=== PATIENT | female | born 1995 | race Caucasian/White ===

== ENCOUNTER 2024-08-21 16:17 | Observation (INO) | payer BC, SELFPAY ==
[2024-08-21] VITALS (13 sets, daily range): BP systolic 108–155; BP diastolic 57–100; BMI 48.7
--- NOTE | 2024-08-21 07:13 | ED.GENMED ---
History of Present Illness
<Bharat Elliott PA-C - Last Filed: 08/21/24 15:20>
General
Chief Complaint: Flank Pain
Source: patient
Exam Limitations: none
Time Seen by Provider: 08/21/24 07:12
History of Present Illness
History of Present Illness:
28-year-old female presents with onset of right flank pain 2 evenings ago. The pain is sharp stabbing in nature and intermittent. Occasionally radiates to the front. She is nauseous without vomiting. Last menstrual cycle was 2 to 3 weeks ago.
No prior history of kidney stones. No fever. Pain does not radiate down the leg. No other complaints at this time
Phy Exam
<Bharat Elliott PA-C - Last Filed: 08/21/24 15:20>
Physical Exam
Physical Exam:
General: Uncomfortable appearing female no acute respiratory distress HEENT: Normocephalic atraumatic
Heart: Regular rate and rhythm no murmurs
Lungs: Clear no wheeze
Musculoskeletal exam: Right costovertebral angle tenderness
Abdomen is soft nontender nondistended
Course
<Bharat Elliott PA-C - Last Filed: 08/21/24 15:20>
Orders/Labs/Results
Orders:
Orders
08/21/24 07:27
0.9% Sodium Chloride 1000 ml [Nss] 1,000 ml IV BOLUS
HYDROmorphone [Dilaudid] 0.5 mg IV NOW STA
Ketorolac [Toradol] 15 mg IV NOW STA
Ondansetron Injectable [Zofran] 4 mg IV NOW STA
08/21/24 07:28
CT Abd/pel Without Iv Or Oral Urgent
Comment:
Reason For Exam: right flank pain
08/21/24 07:29
Test Result ONCE
08/21/24 07:44
Complete Blood Count/With Diff Urgent
Comprehensive Metabolic Panel Urgent
HCG, Serum Qualitative Screen Urgent
Lipase Urgent
Comment: ADD ON
08/21/24 10:48
US Abdomen Limited Urgent
Comment:
Reason For Exam: RUQ pain
08/21/24 11:21
D-Dimer Urgent
Urinalysis Reflex To Culture Urgent
Date Specimen was Collected: 08/21/24
Time Specimen was Collected: 07:41
08/21/24 12:00
Add On- LAB Urgent
Tests Added?: lipase
08/21/24 12:16
CT Pe/abd/pel W Urgent
Comment: MODIFIED TO SCAN C-A-P TOGETHER
Reason For Exam: right flank pain
08/21/24 15:09
Piperacillin/Tazo 3.375 Gram [Zosyn] 3.375 gram in 50 ml IV NOW
Abnormal Lab Results
08/21/24 08/21/24
07:44 11:21
WBC 11.9 H 10^3/uL
(4.8-10.8)
MPV 11.7 H fL
(7.4-10.4)
Abs Immat Gran (auto) 0.1 H 10^3/uL
(0-0.05)
Absolute Neuts (auto) 8.1 H 10^3/uL
(1.4-6.5)
Absolute Monos (auto) 0.7 H 10^3/uL
(0.1-0.6)
D-Dimer 0.64 H ug/mlFEU
(0.00-0.50)
Glucose 107 H mg/dl
(70-99)
ALT 47 H U/L
(0-35)
08/21/24 07:44
08/21/24 07:44
Vital Signs
Initial and Last Documented VS:
Initial Vital Signs
Temp Pulse Resp BP Pulse Ox
97.9 F 93 18 137/100 96
08/21/24 06:52 08/21/24 06:52 08/21/24 06:52 08/21/24 06:52 08/21/24 06:52
Last Documented Vital Signs
Temp Pulse Resp BP Pulse Ox
98.5 F 77 23 132/76 97
08/21/24 13:30 08/21/24 14:59 08/21/24 14:59 08/21/24 14:59 08/21/24 14:59
<Shine Chris MD - Last Filed: 08/21/24 11:50>
Orders/Labs/Results
Orders:
Orders
08/21/24 07:27
0.9% Sodium Chloride 1000 ml [Nss] 1,000 ml IV BOLUS
HYDROmorphone [Dilaudid] 0.5 mg IV NOW STA
Ketorolac [Toradol] 15 mg IV NOW STA
Ondansetron Injectable [Zofran] 4 mg IV NOW STA
08/21/24 07:28
CT Abd/pel Without Iv Or Oral Urgent
Comment:
Reason For Exam: right flank pain
08/21/24 07:29
Test Result ONCE
08/21/24 07:44
Complete Blood Count/With Diff Urgent
Comprehensive Metabolic Panel Urgent
HCG, Serum Qualitative Screen Urgent
Lipase Urgent
Comment: ADD ON
08/21/24 10:48
US Abdomen Limited Urgent
Comment:
Reason For Exam: RUQ pain
08/21/24 11:21
D-Dimer Urgent
Urinalysis Reflex To Culture Urgent
Date Specimen was Collected: 08/21/24
Time Specimen was Collected: 07:41
08/21/24 12:00
Add On- LAB Urgent
Tests Added?: lipase
08/21/24 12:16
CT Pe/abd/pel W Urgent
Comment: MODIFIED TO SCAN C-A-P TOGETHER
Reason For Exam: right flank pain
08/21/24 15:09
Piperacillin/Tazo 3.375 Gram [Zosyn] 3.375 gram in 50 ml IV NOW
Abnormal Lab Results
08/21/24 08/21/24
07:44 11:21
WBC 11.9 H 10^3/uL
(4.8-10.8)
MPV 11.7 H fL
(7.4-10.4)
Abs Immat Gran (auto) 0.1 H 10^3/uL
(0-0.05)
Absolute Neuts (auto) 8.1 H 10^3/uL
(1.4-6.5)
Absolute Monos (auto) 0.7 H 10^3/uL
(0.1-0.6)
D-Dimer 0.64 H ug/mlFEU
(0.00-0.50)
Glucose 107 H mg/dl
(70-99)
ALT 47 H U/L
(0-35)
08/21/24 07:44
08/21/24 07:44
Vital Signs
Initial and Last Documented VS:
Initial Vital Signs
Temp Pulse Resp BP Pulse Ox
97.9 F 93 18 137/100 96
08/21/24 06:52 08/21/24 06:52 08/21/24 06:52 08/21/24 06:52 08/21/24 06:52
Last Documented Vital Signs
Temp Pulse Resp BP Pulse Ox
98.5 F 77 23 132/76 97
08/21/24 13:30 08/21/24 14:59 08/21/24 14:59 08/21/24 14:59 08/21/24 14:59
<Bharat Elliott PA-C - Last Filed: 08/21/24 15:20>
MDM/Problems Addressed
Differential Diagnosis Includes:
Right flank pain. Consider renal colic versus pyelonephritis versus ectopic versus musculoskeletal flank pain
Check urine test urinalysis labs. CT pending medicine ordered for pain
<Bharat Elliott PA-C - Last Filed: 08/21/24 15:20>
*Critical Care Note
Total Time (30-74mins, 75-104mins- exclusive of procedures): Not Applicable
<Bharat Elliott PA-C - Last Filed: 08/21/24 15:20>
Update Note
Update Note:
Discussed with emergency room attending. Initial CT scan showed exophytic lesion in the right renal pelvis not clearly identifiable on plain CT. No renal stone noted. This prompted further testing including D-dimer which was slightly elevated.
CT of chest PE study as well as IV contrast CT of the abdomen pelvis was ordered. There is no PE. There is what is read as a loculated fluid collection to suggest an abscess within the right kidney. White blood cell count is 11.9. Ordered Zosyn.
Will admit to hospital for further evaluation possible interventional radiology involvement
ED Attending Note
<Bharat Elliott PA-C - Last Filed: 08/21/24 15:20>
-
Portions of this chart may have been created with voice recognition software.� Occasional wrong word or��sound alike� substitutions may have occurred due to the inherent limitations of voice recognition software.
<Shine Chris MD - Last Filed: 08/21/24 11:50>
ED Attending Note
Patient seen and examined by attending physician: Yes
I performed the substantive portion of visit, reviewed & personally made and approve the management plan that is documented in note by myself or LION.: Yes
ED Attending Note:
28-year-old female complaining of nontraumatic right back pain. No dysuria or frequency no fever. Some radiation to the front of the abdomen.
Could not get comfortable with this discomfort overnight.
On exam patient is nontoxic in no distress. Sitting up. No CVA tenderness. No rash. No respiratory distress. Lungs are clear and equal. Abdomen is soft and nontender. No right upper quadrant tenderness. No rebound or guarding no mass or
hernia
Differential would include kidney stone, other kidney issue. Gallbladder, PE. Doubt PE but pain is worse with breathing. Will check D-dimer. Doubt gallbladder. No real right upper quadrant tenderness but does come from the back. Will check
ultrasound. CT shows no obstructing kidney stone however there is a exophytic lesion of the kidney. Not convinced this is causing her pain. Will do a D-dimer to screen for PE, limited gallbladder ultrasound and CT with IV contrast.
Discharge Plan
Departure
Patient Disposition: Admit
Date of Disposition: 08/21/24
Time of Disposition: 15:20
Presentation/result/management discussed w/ accepting MD/DO: Hospitalist
Patient with high blood pressure during this ER visit?: No
Discharge Problem:
Renal abscess
Prescriptions:
No Action
No Current Medications
0
Referrals:
Beata Holliday DO [Family Provider, Family Practice]
Interventions
Interventions:
*Risk Screen - Suicide Last Done: 08/21/24 06:52
*General Assessment Last Done: 08/21/24 07:50
*Neglect/Abuse Screening Last Done: 08/21/24 07:50
*ED- Fall Risk Assessment Last Done: 08/21/24 07:50
*ED COVID-19 Vaccine History Last Done: 08/21/24 06:52
DD-Dajhqd-Sogxykbdxz Assessment Last Done: 08/21/24 07:50
ED-Female Genitourinary Assessment Last Done: 08/21/24 07:50
Discharge Date and Time
Print Language: SWISS
[2024-08-21] MEDS: ZOFRAN 4 MG IV (07:41)
[2024-08-21] MEDS: TORADOL 15 MG IV ×2 (07:41→17:11)
[2024-08-21] MEDS: DILAUDID 0.5 MG IV (07:42)
[2024-08-21] MEDS: NSS 1000 IV (07:42)
[2024-08-21 07:58] LABS: % Basophils 0.6 % (0-2); % Eosinophils 1.7 % (0-6); % Immature Granulocytes 0.4 % (0-0.5); % Lymphocytes 23.3 % (20.5-51.1); Absolute Basophils 0.1 10^3/uL (0-0.2); Absolute Eosinophils 0.2 10^3/uL (0-0.7); Absolute Immature Granulocytes 0.1 10^3/uL (0-0.05); Absolute Lymphocytes 2.8 10^3/uL (1.2-3.4); Absolute Monocytes 0.7 10^3/uL (0.1-0.6); Absolute Neutrophils 8.1 10^3/uL (1.4-6.5); Hemoglobin 13.5 g/dL (12.0-16.0); Mean Corp Hgb Conc. 33.8 g/dL (33.0-37.0); Mean Corpuscular Hgb 29.3 pg (27.0-31.0); Mean Corpuscular Volume 86.8 fL (81.0-99.0); Mean Platelet Volume 11.7 fL (7.4-10.4); Nucleated Red Blood Cells % 0 %; Platelet Count 281 10^3/uL (130-400); Red Blood Cell Count 4.61 10^6/uL (4.20-5.40); Red Cell Dist. Width 12.1 % (11.5-14.5); White Blood Cell Count 11.9 10^3/uL (4.8-10.8)
[2024-08-21 08:29] LABS: ALT (SGPT) 47 U/L (0-35); AST (SGOT) 33 U/L (14-36); Albumin 4.5 g/dl (3.5-5.0); Alkaline Phosphatase 88 U/L (38-126); Blood Urea Nitrogen 10 mg/dl (7-17); Calcium 9.6 mg/dl (8.4-10.2); Carbon Dioxide 24 mmol/L (22-30); Chloride 106 mmol/L (98-107); Estimated Creatinine Clearance > 125 ml/min; Glucose 107 mg/dl (70-99); Potassium 4.7 mmol/L (3.5-5.1); Sodium 139 mmol/L (135-145); Total Bilirubin 0.6 mg/dl (0.2-1.3); eGFR > 60.00
[2024-08-21 08:38] LABS: HCG, Serum Qualitative Screen Negative
[2024-08-21 11:34] LABS: Urine Albumin Negative (Neg - Trace); Urine Bilirubin Negative (Negative); Urine Character Clear (Clear); Urine Color Yellow; Urine Glucose Negative (Negative); Urine Ketone Negative (Negative); Urine Leukocyte Negative (Negative); Urine Nitrite Negative (Negative); Urine Occult Blood Negative (Negative); Urine Urobilinogen Negative (Neg - 1+)
[2024-08-21 11:46] LABS: D-Dimer 0.64 ug/mlFEU (0.00-0.50)
[2024-08-21 13:39] LABS: Lipase 68 U/L (23-300)
[2024-08-21] MEDS: ZOSYN 50 IV (15:24)
--- NOTE | 2024-08-21 15:33 | HPS.HSE ---
Family Physician
-
Family Physician: Beata Holliday
Chief Complaint
-
right flank pain
History of Present Illness
Patient is a 28-year-old female with no significant past medical history who presented to [facility] ED for evaluation of right flank pain. Patient reports that Saturday into she started with right back and right flank pain, stated she felt like
she had slept in an odd position. Yesterday she was able to tolerate pain with heating pad and acetaminophen. That night she reports being woken from sleep with sharp pain that now radiated to front abdomen as well and wasn't getting relief so she
came to ED for evaluation. Patient denies any fever, chills, cough, shortness of breath, chest pain, nausesa, vomiting, constipation, diarrhea or urinary symptoms.
Medical History
Past Medical History
Past Medical History: Reports None
Past Surgical History: Reports None
Social History
Tobacco: Vaping (for approximately a year )
Alcohol: Occasional
Drug: None
Personal:
Living: With Family
Employment: Employed
Family History
Family History: Other (Father: DM and prostate cancer; Mother: fibromyalgia )
Allergies / Home Medications
Allergies reflects when Allergies were last updated in [facility].
Home Medications with original date entered in [facility]
Allergy/Medication List:
Allergies
Allergy/AdvReac Type Severity Reaction Status Date / Time
environmental Allergy nasal Uncoded 08/21/24 06:58
congestion
Home Medications
No Meds [No Current Medications] 08/21/24
Review of Systems
-
History Source: Patient
Abdomen/GI: Reports Abdominal Pain (right back and right flank pain that radiates to abdomen )
Physical Exam
Vital Signs
Vital Signs
Temp Pulse Resp BP Pulse Ox
98.5 F 77 23 132/76 97
08/21/24 13:30 08/21/24 14:59 08/21/24 14:59 08/21/24 14:59 08/21/24 14:59
Physical Exam
General: Well Developed, Well Nourished, No Apparent Distress, Conversant and Morbidly Obese
HEENT: NormoCephalic, Moist mucous membranes and Atraumatic
Respiratory: Clear
Cardiac: S1/S2 and Regular Rhythm
Breast: Deferred by me
GI: Soft, Non Distended, Normal Bowel Sounds and Tender
Rectal: Deferred by Provider
Genito-urinary: Deferred by me
Musculoskeletal: No Clubbing, No Cyanosis, No Edema and Other (right back and right flank pain that radiates to abdomen )
Skin: Warm, Dry and IV/Catheter Site
Neuro: Awake, Alert, AO x 3 and Nonfocal/grossly intact
Psych: Calm and Intact Judgment/Insight
Laboratory Results
-
08/21/24 07:44
08/21/24 07:44
Laboratory Results
Total Bilirubin 0.6 mg/dl (0.2-1.3) 08/21/24 07:44
AST 33 U/L (14-36) 08/21/24 07:44
ALT 47 U/L (0-35) H 08/21/24 07:44
Alkaline Phosphatase 88 U/L (38-126) 08/21/24 07:44
Lipase 68 U/L (23-300) 08/21/24 07:44
Data Reviewed
-
CT Scan: Report Reviewed by me (2 Abd/Pel (see reports) )
Ultrasound: Report Reviewed by me (RUQ Abd: Negative for cholelithiasis. Hepatic steatosis. Exophytic solid and cystic mass arising from the anterior right kidney measuring 3.1 x 2.9 x 3.2 cm.)
Lab Data: Labs Reviewed by me (WBC 11.9, )
Impression/Plan
-
IMPRESSION/PLAN:
#
Abd US: Negative for cholelithiasis.
Hepatic steatosis.
Exophytic solid and cystic mass arising from the anterior right kidney measuring 3.1 x 2.9 x 3.2 cm.
Abd/Pel w/out IV contrast: 1. Partially exophytic lesion arising from the anterior midpole of the right kidney measuring 2.6 cm, suspicious for small renal neoplasm versus complex cyst. Further evaluation
with ultrasound versus nonemergent multiphasic CT or MRI is recommended.
2. Nonspecific heterogeneity of the lateral midpole of the right kidney with some associated hyperdensity, also possibly a complex cyst. No inflammatory changes identified. No
right-sided hydronephrosis or intrarenal calculi.
3. Unremarkable appendix.
4. Hepatic steatosis.
Abd/Pel w/ IV contrast: 1. Multiloculated fluid collection seen within the RIGHT kidney which corresponds to the abnormality seen on prior CT. No definitive enhancement appreciated. The largest locule
within the lateral right midpole measures 2.1 x 2.7 cm. No inflammatory changes appreciated. However, findings suspicious for renal abscess.
2. Limited evaluation for pulmonary embolism with no central emboli identified.
3. Hepatic steatosis.
4. Additional findings above.
- Admit to
- Consult ID
- Consult Urology
- IV Zosyn
- supportive care
Code status: full code
DVT prophylaxis: Lovenox sq
--- NOTE | 2024-08-21 16:11 | W.PN.UPDATE ---
Update Note
Progress Note Update
This is an addendum to H&P written by Jocelyn Calvillo on 08/21/2024.� Patient seen and examined independently with [employer].
28-year-old female without past medical history presenting with intermittent stabbing right flank pain 2 nights ago.� Nausea without vomiting.� No fever or history of kidney stones.
Vital signs normal.
Labs show leukocytosis.
Urinalysis unremarkable.� CT abdomen pelvis shows multiloculated fluid collection within the right kidney suspicious for renal abscess.
Zosyn started.� Urology and ID consulted.
--- NOTE | 2024-08-21 17:02 | CON.ID ---
Consultation
-
Date/Time Consultation Requested: August 21, 2024 1654
Date/Time Consultation Performed: August 21, 2024 1700
Requesting Provider: YAEL Thomas
Performing Provider: Dr. Yajaira Cunningham
Reason for Consultation: Renal abscess
Chief Complaint / Past History
Chief Complaint
Right flank pain
History of Present Illness
28-year-old female without significant past medical history who presented to the ER this morning due to right flank pain. She reports on Saturday in the middle of the night, she got up to go to the bathroom when she noted stabbing pain on the
right side of her back. Pain persisted through . The stabbing sharp pain then started shooting to the front. She therefore came to the ER. No dysuria, urgency, or frequency. No history of pyelonephritis. She had UTI when she was a
child. No fevers or chills. In ED white count 11.9. Urine analysis negative nitrite, negative leuk esterase, negative white blood cells. CT of the chest abdomen pelvis with IV contrast shows right kidney with multiloculated low attenuation
collection without enhancement. No inflammatory stranding. She is started on Zosyn.
Past History
Additional Past Medical History:
Class III obesity BMI 49
Past Surgical History: None
Allergy History:
environmental Allergy (Uncoded 08/21/24 06:58)
nasal congestion
Medications Reviewed: Yes
Current Antibiotics:
Zosyn
Social History
Tobacco: Vaping
Alcohol: Occasional
Drug: None
Personal:
Family History
Family History: Not Pertinent
Review of Systems
Review of Systems
General: Negative Fever, Chills or Change in Appetite
HEENT: Negative Stiff Neck, Sinus Problems or Headache
Cardiovascular: Negative Chest Pain or Dyspnea
Respiratory: Negative Dyspnea or Cough
Gasteroenterology: Negative Nausea, Vomiting or Diarrhea
Genital / Urological: Negative Dysuria
Endocrine: Negative Weakness
Skin / Hair / Nails: Negative Rash
Neurological: Negative Dizziness
All systems: All other systems were reviewed and were negative
Vital Signs
Temp Pulse Resp BP Pulse Ox
98.5 F 87 22 154/89 97
08/21/24 13:30 08/21/24 16:30 08/21/24 16:30 08/21/24 16:00 08/21/24 16:45
Physical Exam
Physical Exam
Constitutional: No Acute Distress and Obese
Eyes: No Conjunctival Hemorrhage and Sclera Anicteric
Cardiovascular: Regular Rate and S1/S2
Pulmonary: Clear
Gastrointestinal: Soft, Non Tender, Non Distended and Normal Bowel Sounds
Genito-Urinary: Negative Suprapubic Tenderness or CVA Tenderness
Extremities: Negative Edema
Neurological: AO x 3
Lab / Diagnostic Study Results
08/21/24 07:44
08/21/24 07:44
Abs Immat Gran (auto) 0.1 10^3/uL (0-0.05) H 08/21/24 07:44
Absolute Neuts (auto) 8.1 10^3/uL (1.4-6.5) H 08/21/24 07:44
Absolute Lymphs (auto) 2.8 10^3/uL (1.2-3.4) 08/21/24 07:44
Absolute Monos (auto) 0.7 10^3/uL (0.1-0.6) H 08/21/24 07:44
Absolute Basos (auto) 0.1 10^3/uL (0-0.2) 08/21/24 07:44
Immature Gran % 0.4 % (0-0.5) 08/21/24 07:44
Neutrophils % 68.0 % (42.2-75.2) 08/21/24 07:44
Lymphocytes % 23.3 % (20.5-51.1) 08/21/24 07:44
Monocytes % 6.0 % (1.7-9.3) 08/21/24 07:44
Eosinophils % 1.7 % (0-6) 08/21/24 07:44
Basophils % 0.6 % (0-2) 08/21/24 07:44
Microbiology Results
08/21/34 Ab US: Negative for cholelithiasis. Hepatic steatosis. Exophytic solid and cystic mass arising from the anterior right kidney measuring 3.1 x 2.9 x 3.2 cm.
08/21/24 CT PE/abd/pel : Multiloculated fluid collection seen within the RIGHT kidney which corresponds to the abnormality seen on prior CT. No definitive enhancement appreciated. The largest locule within the lateral right midpole measures 2.1 x 2.7
cm. No inflammatory changes appreciated. However, findings suspicious for renal abscess.
Assessment / Plan
# Right flank spasm/shooting pain
- CT a/p non-enhancing multi-loculated collection right kidney, no perinephric stranding.
- She DOES NOT clinically correlate with renal abscess: No fever, normal wbc, UA NEGATIVE, NO CVA tenderness.
- Order placed for IR to aspirate fluid for culture and cytology.
- DC Zosyn and observe.
[2024-08-21] MEDS: FLUSH (NSS) 2 FLUSH IV ×2 (17:11→17:12)
--- NOTE | 2024-08-21 19:04 | CONS.URO ---
Consultation
-
Date/Time Consultation Performed: 08/21/24 7pm
Performing Provider: Peffer
Reason for Consultation: Renal fluid collection
Medical History
History of Present Illness
28F with no prior urologic history
presented to the ER this morning due to right flank pain.
Sabbing pain on the right side of her back since Saturday, persisted and worsened through .
Molina radiated around to front of abdomen
No dysuria, urgency, or frequency.
No history of pyelonephritis. No recurrent UTIs No fevers or chills.
In ED white count 11.9. Urine analysis negative nitrite, negative leuk esterase, negative white blood cells.
CT of the chest abdomen pelvis with IV contrast shows right kidney with multiloculated low attenuation collection without enhancement. No inflammatory stranding. She is started on Zosyn.
Social History
Tobacco: Non-smoker
Alcohol: None
Drug: None
Family History
Family History: Reviewed & Not Pertinent
Allergies/Home Medications
Allergies
Allergy/AdvReac Type Severity Reaction Status Date / Time
environmental Allergy nasal Uncoded 08/21/24 06:58
congestion
Home Medications
�Medication �Instructions �Recorded �Confirmed �Type
No Meds [No Current Medications] 08/21/24 08/21/24 History
Physical Exam
Vital Signs
Vital Signs
Temp Pulse Resp BP Pulse Ox
98.4 F 88 16 155/91 98
08/21/24 17:02 08/21/24 17:02 08/21/24 17:02 08/21/24 17:02 08/21/24 17:02
Lab / Testing Results
Laboratory Results
08/21/24 07:44
08/21/24 07:44
Physical Exam
General: Well Developed, Well Nourished and No Apparent Distress
Respiratory: Clear
GI: Soft and Non Tender
Genito-urinary: No Costovertebral Tend
Hematologic/Lymphatic: No Lymphadenopathy
Psych: Calm and Intact Judgement
Assessment / Plan
-
28F with acute R flank pain and loculated R renal fluid collection
Mild leukocytosis with no fever/sepsis and with normal UA
Imaging appearance is atypical for abscess but also low suspicion for malignancy, benign cystic changes, or infarction
Per ID, low suspicion for infection and ordered IR aspiration for culture and cytology with observation off antibiotics
Would also be reasonable to treat with empiric antibiotic course for spontaneous abscess followed by repeat imaging in 3-4 weeks
Will follow
Data Reviewed
-
CT Scan: Image personally visualized and interpreted
Lab Data: Labs Reviewed
[2024-08-22 07:05] VITALS: BP 154/98
[2024-08-22 08:15] LABS: Hematocrit 36.7 % (37.0-47.0); Mean Corp Hgb Conc. 32.7 g/dL (33.0-37.0); Mean Corpuscular Hgb 28.6 pg (27.0-31.0); Mean Corpuscular Volume 87.4 fL (81.0-99.0); Mean Platelet Volume 11.7 fL (7.4-10.4); Platelet Count 230 10^3/uL (130-400); Red Cell Dist. Width 12.1 % (11.5-14.5); White Blood Cell Count 5.9 10^3/uL (4.8-10.8)
[2024-08-22 08:57] LABS: Blood Urea Nitrogen 11 mg/dl (7-17); Calcium 9.1 mg/dl (8.4-10.2); Carbon Dioxide 26 mmol/L (22-30); Chloride 108 mmol/L (98-107); Estimated Creatinine Clearance > 125 ml/min; Glucose 94 mg/dl (70-99); Potassium 4.6 mmol/L (3.5-5.1); Sodium 140 mmol/L (135-145); eGFR > 60.00
--- NOTE | 2024-08-22 10:29 | CM ---
Addendum entered by Karrie Cuevas 08/22/24 10:35:
OBS Status - form explained & signed. In chart
Original Note:
Patient seen at bedside
IA completed
CM role explained
Lives with in an apartment
PLOF: independent
works, drives
Denies DME
Denies VN/Rehab
Denies insecurities
PCP: appt on 09/01 with [facility]
Pharmacy: [facility]
PLAN: home, no needs
to transport
--- NOTE | 2024-08-22 10:33 | W.PN.HOSP.TC ---
Today's Communication/Plan
-
Discharge
Assessment / Plan
Assessment / Plan
Gen-AAOx3, NAD
HEENT-NC, AT, anicteric, clear oral mm
Neck-supple
CV-reg, no M, +S1/S2
Lungs-clear B/L
Abd-soft, NT, ND
Ext-no edema
Musculoskeletal-no cyanosis, clubbing
Skin-warm and dry
Neuro-grossly non-focal
Psych-calm, cooperative
Right renal multiloculated fluid collection -no evidence of abscess on CT. Clinically without signs or symptoms of infection or sepsis.
Scans reviewed by interventional radiology, recommendation is to avoid aspiration as unlikely to be abscess.
Pain resolved. Anticipate discharge if okay with urology and ID. Outpatient follow-up.
Morbid obesity due to excess calories
Full code
Anticipated Discharge: Today
Subjective/Interval History
-
Date of Service: August 22, 2024
Patient seen and examined. No complaints currently. Denies pain.
Objective Data
-
Labs:
Laboratory Results
08/22/24
07:18
WBC 5.9
Hgb 12.0
Hct 36.7 L
Plt Count 230
Sodium 140
Potassium 4.6
Chloride 108 H
Carbon Dioxide 26
BUN 11
Creatinine 0.6
Glucose 94
Calcium 9.1
Vital Signs:
Vital Signs
Temp Pulse Resp BP Pulse Ox
97.7 F 88 19 154/98 97
08/22/24 07:05 08/22/24 07:05 08/22/24 07:05 08/22/24 07:05 08/22/24 07:05
I&O
08/21/24 08/22/24 08/23/24
06:59 06:59 06:59
Intake Total 480 / 480
Balance 480 / 480
Review of Systems
-
History Source: Patient
All other systems: Reviewed and negative
--- NOTE | 2024-08-22 10:50 | W.DS.TRANS ---
DC Summary - Programs Director
-
Discharge Instructions:
Discharge Diagnosis/Procedures Right kidney multiloculated fluid collection
Diet Regular
Activity As tolerated
Driving Restrictions As prior to admission
Bathing Restrictions None
Instructions:
Stand-Alone Forms:
Changes to Home Medications: No
Discharge Medications:
DC Medications w/original date entered in [facility]
ibuprofen 800 mg tablet 800 mg PO Q6H PRN Pain #14 tabs 08/22/24
Home Medication Changes
Pending Results: No
--- NOTE | 2024-08-22 10:52 | W.PN.URO.CBU ---
Today's Communication / Plan
-
Outpatient follow up with MRI
Assessment / Plan
-
28F with complex R renal fluid collection and R flank pain
Unclear what this represents
No systemic signs off antibiotics
Will arrange outpatient follow up in 1 month with MRI to re-eval
Diagnosis
-
Date of Service: August 22, 2024
-
Patient Diagnosis:
Complex R renal cyst vs abscess
Post Op Day:
Subjective
-
feels well today
No fevers or pain
Objective
-
Vital Signs
Temp Pulse Resp BP Pulse Ox
97.7 F 88 19 154/98 97
08/22/24 07:05 08/22/24 07:05 08/22/24 07:05 08/22/24 07:05 08/22/24 07:05
Intake and Output
08/21/24 08/22/24 08/23/24
06:59 06:59 06:59
Intake Total 480 / 480
Balance 480 / 480
Intake:
Oral fluids 480 / 480
Other:
Number of approximated MODERATE 1
amounts of urine
Laboratory Results
08/22/24 07:18
08/22/24 07:18
Physical Exam
-
General - well developed, well nourished, no acute distress
Chest - clear bilaterally
Abdomen - soft, non-tender
--- NOTE | 2024-08-22 11:33 | W.PN.ID1 ---
Date of Service
Date of Service: August 22, 2024
Today's Communication
OK to dc home.
Assessment / Plan
# Right flank spasm/shooting pain
- CT a/p non-enhancing multi-loculated collection right kidney, no perinephric stranding.
- She DOES NOT clinically correlate with renal abscess: No fever, normal wbc, UA NEGATIVE, NO CVA tenderness.
- Spoke to radiologist who reviewed CT scan and deemed unlikely abscess; more likely cystic mass with bleeding in one locule. To consider MRI with substraction imaging.
- Cancelled IR consult to aspirate fluid for culture and cytology.
- No abx at this time from ID standpoint.
- Can follow-up with Urology.
Chief Complaint
-: Other
Subjective / Review of Systems
Flank discomfort intermittent
Vital Signs / Physical Exam
Vital Signs
Vital Signs
Temp Pulse Resp BP Pulse Ox
97.7 F 88 19 154/98 97
08/22/24 07:05 08/22/24 07:05 08/22/24 07:05 08/22/24 07:05 08/22/24 07:05
Physical Exam
Constitutional: No Acute Distress, Comfortable and Obese
Cardiovascular: Regular Rate and S1/S2
Pulmonary: Clear
Gastrointestinal: Soft, Non Tender, Non Distended and Normal Bowel Sounds
Genito-Urinary: Negative CVA Tenderness
Neurological: AO x 3
Objective Data
Lab Data
Lab Results
08/22/24 07:18
08/22/24 07:18
Estimated Creat Clear > 125 ml/min 08/22/24 07:18
Total Bilirubin 0.6 mg/dl (0.2-1.3) 08/21/24 07:44
AST 33 U/L (14-36) 08/21/24 07:44
ALT 47 U/L (0-35) H 08/21/24 07:44
Alkaline Phosphatase 88 U/L (38-126) 08/21/24 07:44
Most recent labs reviewed.
08/21/34 Ab US: Negative for cholelithiasis. Hepatic steatosis. Exophytic solid and cystic mass arising from the anterior right kidney measuring 3.1 x 2.9 x 3.2 cm.
08/21/24 CT PE/abd/pel : Multiloculated fluid collection seen within the RIGHT kidney which corresponds to the abnormality seen on prior CT. No definitive enhancement appreciated. The largest locule within the lateral right midpole measures 2.1 x 2.7
cm. No inflammatory changes appreciated. However, findings suspicious for renal abscess.
Care Review
Plan reviewed with: Physician (Dr. Rod)
[2024-08-22 12:18] VITALS: BP 144/86
== END 2024-08-22 12:52 | disposition home or self-care (01) ==
LOC: 3 WEST ACU 16:17
PROVIDERS: Nurse Practitioner Family; Physician Assistant; ADMITTING PHYSICIAN Hospitalist; ATTENDING PHYSICIAN Hospitalist; CONSULT PHYSICIAN Internal Medicine Infectious Disease; EMERGENCY PHYSICIAN Emergency Medicine; FAMILY PHYSICIAN Family Medicine; OTHER PHYSICIAN Urology
DX: N28.89 Other specified disorders of kidney and ureter (principal); R10.11 Right upper quadrant pain; N28.1 Cyst of kidney, acquired; R11.0 Nausea; D72.829 Elevated white blood cell count, unspecified; F17.290 Nicotine dependence, other tobacco product, uncomplicated; K76.0 Fatty (change of) liver, not elsewhere classified; E66.813 Obesity, class 3; R79.89 Other specified abnormal findings of blood chemistry; E66.01 Morbid (severe) obesity due to excess calories; Z68.42 Body mass index [BMI] 45.0-49.9, adult; Z87.440 Personal history of urinary (tract) infections; Z83.3 Family history of diabetes mellitus; Z80.42 Family history of malignant neoplasm of prostate
CPT/HCPCS: 71275; 74176; 74177; 76705; 80048; 80053; 81003; 83690; 84703; 85025; 85027; 85379; 96361; 96365; 96375; 99285; 99406; G0378; Q9967

== ENCOUNTER → 2024-11-04 08:22 | Outpatient (REF) | payer BC, SELFPAY | LOC: PAVMRI 08:22 | PROVIDERS: ATTENDING PHYSICIAN Urology | DX: N28.1 Cyst of kidney, acquired (principal) | CPT/HCPCS: 74183; A9575 ==

== ENCOUNTER → 2025-02-24 16:50 | Outpatient (REF) | payer SELFPAY | LOC: PNTC 16:50 | PROVIDERS: ATTENDING PHYSICIAN Student in an Organized Health Care Education/Training Program | DX: O99.212 Obesity complicating pregnancy, second trimester (principal) | CPT/HCPCS: 76805 ==